=== PATIENT | female | born 2000 | race Caucasian/White ===

== ENCOUNTER 2018-04-01 14:18 | Outpatient (CLI) | payer OTHER, SELFPAY ==
[2018-04-01 14:54] LABS: Abs Immature Grans 0.01 k/cumm (0.0-0.09); Absolute Basophil Count 0.02 k/cumm (0.0-0.2); Absolute Eosinophil Count 0.31 k/cumm (0.0-0.7); Absolute Lymphocyte Count 2.68 k/cumm (1.2-3.4); Absolute Monocyte Count 0.57 k/cumm (0.11-0.7); Absolute Neutrophil Count 2.79 k/cumm (1.2-6.7); Basophils % 0.3; Eosinophils % 4.9; HCT 34.4 % (36.0-46.0); HGB 11.6 g/dL (12.0-15.5); Immature Grans % 0.2; Mean Corp. HGB Concentration 33.7 g/dL (32.0-36.0); Mean Corpuscular Hemoglobin 31.9 pg (27.0-33.0); Mean Corpuscular Volume 94.5 fL (80-95); Mean Platelet Volume 11.5 fL (8.0-11.0); Monocytes % 8.9; Neutrophils % 43.7; Platelet Count 256 x1000/uL (130-400); RBC 3.64 m/cumm (4.00-5.20); White Blood Cell Count 6.38 k/cumm (4.4-10.8)
== END 2018-04-01 14:38 ==
PROVIDERS: PCP Internal Medicine; Visit Provider Internal Medicine Rheumatology
DX: M19.90 Unspecified osteoarthritis, unspecified site (principal); Q79.6 Ehlers-Danlos syndromes
CPT/HCPCS: 36415; 85025

== ENCOUNTER 2018-04-15 12:44 | Outpatient (CLI) | payer OTHER, SELFPAY ==
[2018-04-15 14:19] LABS: ALT 24 U/L (12-78); AST 18 U/L (15-37); Albumin 3.6 g/dL (3.4-5.0); Alkaline Phosphatase 59 U/L (46-116); Anion Gap 9.6 mmol/L (3-11); BUN 11 mg/dL (7-18); Bilirubin, Total 0.9 mg/dL (0.2-1.0); CO2 25.4 mmol/L (21.0-32.0); CREATININE 0.85 mg/dL (0.55-1.02); Calcium 8.6 mg/dL (8.5-10.1); Chloride 105 mmol/L (98-107); Glucose 106 mg/dL (70-100); Potassium 4.3 mmol/L (3.5-5.1); Sodium 140 mmol/L (136-145); Total Protein 6.9 g/dL (6.4-8.2)
== END 2018-04-15 13:04 ==
PROVIDERS: PCP Internal Medicine; Visit Provider Internal Medicine Rheumatology
DX: M19.90 Unspecified osteoarthritis, unspecified site (principal); Q79.6 Ehlers-Danlos syndromes
CPT/HCPCS: 36415; 80053

== ENCOUNTER 2018-07-03 09:36 | Outpatient (CLI) | payer OTHER, SELFPAY ==
[2018-07-03 11:15] LABS: ALT 29 U/L (12-78); AST 21 U/L (15-37); Albumin 3.9 g/dL (3.4-5.0); Alkaline Phosphatase 51 U/L (46-116); Anion Gap 11.6 mmol/L (3-11); BUN 11 mg/dL (7-18); Bilirubin, Total 0.8 mg/dL (0.2-1.0); CO2 25.4 mmol/L (21.0-32.0); CREATININE 0.74 mg/dL (0.55-1.02); Calcium 9.2 mg/dL (8.5-10.1); Chloride 103 mmol/L (98-107); Glucose 82 mg/dL (70-100); Potassium 4.2 mmol/L (3.5-5.1); Sodium 140 mmol/L (136-145); Total Protein 7.4 g/dL (6.4-8.2)
[2018-07-03 11:30] LABS: Abs Immature Grans 0.01 k/cumm (0.0-0.09); Absolute Basophil Count 0.01 k/cumm (0.0-0.2); Absolute Eosinophil Count 0.29 k/cumm (0.0-0.7); Absolute Lymphocyte Count 1.88 k/cumm (1.2-3.4); Absolute Monocyte Count 0.39 k/cumm (0.11-0.7); Basophils % 0.1; Eosinophils % 3.2; HCT 35.9 % (36.0-46.0); HGB 12.2 g/dL (12.0-15.5); Immature Grans % 0.1; Lymphocytes % 20.9; Mean Corpuscular Hemoglobin 32.4 pg (27.0-33.0); Mean Corpuscular Volume 95.5 fL (80-95); Mean Platelet Volume 11.7 fL (8.0-11.0); Monocytes % 4.3; Neutrophils % 71.4; Platelet Count 271 x1000/uL (130-400); RBC 3.76 m/cumm (4.00-5.20); RBC Distribution Width 12.9 % (11.7-14.6); White Blood Cell Count 8.98 k/cumm (4.4-10.8)
== END 2018-07-03 09:56 ==
PROVIDERS: PCP Internal Medicine; Visit Provider Internal Medicine Rheumatology
DX: M47.819 Spondylosis without myelopathy or radiculopathy, site unspecified (principal); Z79.899 Other long term (current) drug therapy
CPT/HCPCS: 36415; 80053; 85025

== ENCOUNTER 2018-08-28 14:06 | Outpatient (CLI) | payer BC, SELFPAY ==
[2018-08-28 14:20] LABS: Abs Immature Grans 0.01 k/cumm (0.0-0.09); Absolute Basophil Count 0.01 k/cumm (0.0-0.2); Absolute Eosinophil Count 0.14 k/cumm (0.0-0.7); Absolute Lymphocyte Count 2.24 k/cumm (1.2-3.4); Absolute Monocyte Count 0.51 k/cumm (0.11-0.7); Absolute Neutrophil Count 5.14 k/cumm (1.2-6.7); Basophils % 0.1; Eosinophils % 1.7; HCT 34.5 % (36.0-46.0); HGB 11.6 g/dL (12.0-15.5); Immature Grans % 0.1; Lymphocytes % 27.8; Mean Corp. HGB Concentration 33.6 g/dL (32.0-36.0); Mean Corpuscular Hemoglobin 32.1 pg (27.0-33.0); Mean Corpuscular Volume 95.6 fL (80-95); Mean Platelet Volume 11.1 fL (8.0-11.0); Monocytes % 6.3; Platelet Count 243 x1000/uL (130-400); RBC 3.61 m/cumm (4.00-5.20); RBC Distribution Width 12.5 % (11.7-14.6); White Blood Cell Count 8.05 k/cumm (4.4-10.8)
[2018-08-28 15:24] LABS: ALT 34 U/L (12-78); AST 19 U/L (15-37); Albumin 3.5 g/dL (3.4-5.0); Alkaline Phosphatase 44 U/L (46-116); Anion Gap 9.6 mmol/L (3-11); BUN 12 mg/dL (7-18); Bilirubin, Total 0.8 mg/dL (0.2-1.0); CO2 26.4 mmol/L (21.0-32.0); Calcium 8.9 mg/dL (8.5-10.1); Chloride 104 mmol/L (98-107); Glucose 140 mg/dL (70-100); Potassium 4.5 mmol/L (3.5-5.1); Sodium 140 mmol/L (136-145); Total Protein 7.1 g/dL (6.4-8.2)
== END 2018-08-28 14:26 ==
PROVIDERS: PCP Internal Medicine; Visit Provider Internal Medicine Rheumatology
DX: M47.819 Spondylosis without myelopathy or radiculopathy, site unspecified (principal); Z79.899 Other long term (current) drug therapy
CPT/HCPCS: 36415; 80053; 85025

== ENCOUNTER 2019-01-21 15:37 | Outpatient (CLI) | payer BC, SELFPAY ==
[2019-01-21 16:11] LABS: Abs Immature Grans 0.01 k/cumm (0.0-0.09); Absolute Basophil Count 0.02 k/cumm (0.0-0.2); Absolute Eosinophil Count 0.07 k/cumm (0.0-0.7); Absolute Lymphocyte Count 1.98 k/cumm (1.2-3.4); Absolute Monocyte Count 0.43 k/cumm (0.11-0.7); Basophils % 0.3; HCT 37.1 % (36.0-46.0); HGB 12.6 g/dL (12.0-15.5); Immature Grans % 0.1; Lymphocytes % 29.5; Mean Corpuscular Hemoglobin 31.9 pg (27.0-33.0); Mean Corpuscular Volume 93.9 fL (80-95); Mean Platelet Volume 11.2 fL (8.0-11.0); Monocytes % 6.4; Neutrophils % 62.7; Platelet Count 226 x1000/uL (130-400); RBC 3.95 m/cumm (4.00-5.20); White Blood Cell Count 6.71 k/cumm (4.4-10.8)
[2019-01-21 17:07] LABS: ALT 27 U/L (12-78); AST 18 U/L (15-37); Alkaline Phosphatase 60 U/L (46-116); Anion Gap 8.5 mmol/L (3-11); BUN 10 mg/dL (7-18); Bilirubin, Total 0.8 mg/dL (0.2-1.0); CO2 24.5 mmol/L (21.0-32.0); CREATININE 0.78 mg/dL (0.55-1.02); Calcium 9.2 mg/dL (8.5-10.1); Chloride 106 mmol/L (98-107); Glucose 90 mg/dL (70-100); Potassium 4.4 mmol/L (3.5-5.1); Sodium 139 mmol/L (136-145); Total Protein 7.6 g/dL (6.4-8.2)
== END 2019-01-21 15:57 ==
PROVIDERS: PCP Internal Medicine; Visit Provider Internal Medicine Rheumatology
DX: M47.819 Spondylosis without myelopathy or radiculopathy, site unspecified (principal); Z79.899 Other long term (current) drug therapy
CPT/HCPCS: 36415; 80053; 85025

== ENCOUNTER 2019-06-22 14:07 | Outpatient (CLI) | payer BC, SELFPAY ==
[2019-06-22 14:32] LABS: Abs Immature Grans 0.01 k/cumm (0.0-0.09); Absolute Basophil Count 0.03 k/cumm (0.0-0.2); Absolute Lymphocyte Count 2.61 k/cumm (1.2-3.4); Absolute Neutrophil Count 4.96 k/cumm (1.2-6.7); Basophils % 0.4; Eosinophils % 2.4; HGB 12.1 g/dL (12.0-15.5); Immature Grans % 0.1; Lymphocytes % 31.4; Mean Corp. HGB Concentration 34.6 g/dL (32.0-36.0); Mean Corpuscular Hemoglobin 32.4 pg (27.0-33.0); Mean Corpuscular Volume 93.6 fL (80-95); Mean Platelet Volume 10.9 fL (8.0-11.0); Neutrophils % 59.7; Platelet Count 223 x1000/uL (130-400); RBC 3.74 m/cumm (4.00-5.20); White Blood Cell Count 8.31 k/cumm (4.4-10.8)
[2019-06-22 15:23] LABS: ALT 24 U/L (14-59); AST 18 U/L (15-37); Albumin 3.8 g/dL (3.4-5.0); Alkaline Phosphatase 47 U/L (46-116); Anion Gap 10.6 mmol/L (3-11); BUN 10 mg/dL (7-18); Bilirubin, Total 0.7 mg/dL (0.2-1.0); CO2 25.4 mmol/L (21.0-32.0); Chloride 105 mmol/L (98-107); Glucose 88 mg/dL (74-106); Sodium 141 mmol/L (136-145)
[2019-06-22 15:29] LABS: CREATININE 0.66 mg/dL (0.55-1.02)
[2019-06-22 15:37] LABS: TSH (W/Ref FT4) 1.56 uIU/mL (0.36-3.74)
== END 2019-06-22 14:27 ==
PROVIDERS: PCP Internal Medicine; Visit Provider Internal Medicine Rheumatology
DX: Z00.00 Encounter for general adult medical examination without abnormal findings (principal); Z13.29 Encounter for screening for other suspected endocrine disorder; M47.819 Spondylosis without myelopathy or radiculopathy, site unspecified; Z79.899 Other long term (current) drug therapy
CPT/HCPCS: 36415; 80053; 84443; 85025

== ENCOUNTER 2020-01-25 02:09 | Outpatient (CLI) | payer BC, SELFPAY ==
[2020-01-25 13:52] LABS: Abs Immature Grans 0.01 k/cumm (0.0-0.09); Absolute Basophil Count 0.03 k/cumm (0.0-0.2); Absolute Eosinophil Count 0.28 k/cumm (0.0-0.7); Absolute Lymphocyte Count 2.47 k/cumm (1.2-3.4); Absolute Monocyte Count 0.66 k/cumm (0.11-0.7); Absolute Neutrophil Count 2.04 k/cumm (1.2-6.7); Basophils % 0.5; Eosinophils % 5.1; HCT 36.3 % (36.0-46.0); HGB 12.4 g/dL (12.0-15.5); Immature Grans % 0.2 %; Mean Corp. HGB Concentration 34.2 g/dL (32.0-36.0); Mean Corpuscular Hemoglobin 32.3 pg (27.0-33.0); Mean Corpuscular Volume 94.5 fL (80-95); Mean Platelet Volume 11.5 fL (8.0-11.0); Neutrophils % 37.2; Platelet Count 207 x1000/uL (130-400); RBC 3.84 m/cumm (4.00-5.20); White Blood Cell Count 5.49 k/cumm (4.4-10.8)
[2020-01-25 14:24] LABS: ALT 29 U/L (14-59); AST 28 U/L (15-37); Albumin 4.2 g/dL (3.4-5.0); Alkaline Phosphatase 62 U/L (46-116); Anion Gap 10.3 mmol/L (3-11); BUN 13 mg/dL (7-18); Bilirubin, Total 0.8 mg/dL (0.2-1.0); CO2 24.7 mmol/L (21.0-32.0); CREATININE 0.82 mg/dL (0.55-1.02); Calcium 9.3 mg/dL (8.5-10.1); Chloride 102 mmol/L (98-107); Glucose 123 mg/dL (74-106); Potassium 3.9 mmol/L (3.5-5.1); Sodium 137 mmol/L (136-145); Total Protein 7.3 g/dL (6.4-8.2)
== END 2020-01-25 02:29 ==
PROVIDERS: PCP Internal Medicine; Visit Provider Internal Medicine Rheumatology
DX: M06.00 Rheumatoid arthritis without rheumatoid factor, unspecified site (principal); Z79.899 Other long term (current) drug therapy
CPT/HCPCS: 36415; 80053; 85025

== ENCOUNTER 2021-09-04 00:44 | Outpatient (RCR) | payer BC, SELFPAY ==
[2021-09-04] VITALS (7 sets, daily range): BP systolic 105–115; BP diastolic 64–75; PULSE 84–102; RESP 16–17; TEMP 36.1–36.6; O2SAT 99–100
[2021-09-04] MEDS: diphenhydrAMINE 25 MG CAP PO (08:05)
[2021-09-04] MEDS: Acetaminophen 325 MG TAB 650 MG PO (08:05)
[2021-09-04] MEDS: Normal Saline Flush 10 ML SYR IVP (08:34)
== END 2021-09-18 23:59 | disposition home or self-care (01) ==
LOC: INF 00:44
PROVIDERS: PCP Internal Medicine; Visit Provider Family Medicine
DX: M06.9 Rheumatoid arthritis, unspecified (principal); L40.9 Psoriasis, unspecified
CPT/HCPCS: 96365; 96366; 96413; 96415; J1745

== ENCOUNTER 2021-10-16 02:25 | Outpatient (RCR) | payer BC, SELFPAY ==
[2021-09-19 00:15] VITALS: BP 115/75; PULSE 84; RESP 17; TEMP 36.6
[2021-10-16] MEDS: Acetaminophen 325 MG TAB 650 MG PO (08:14)
[2021-10-16] MEDS: diphenhydrAMINE 25 MG CAP PO (08:14)
[2021-10-16] MEDS: Normal Saline Flush 10 ML SYR IVP (08:15)
[2021-10-16 08:30] VITALS: BP 102/70; PULSE 98; RESP 16; TEMP 36.7; O2SAT 99
[2021-10-16 08:59] VITALS: BP 104/71; PULSE 98; RESP 16; TEMP 36.6; O2SAT 100
[2021-10-16 09:12] VITALS: BP 98/57; PULSE 93; RESP 16; TEMP 36.7; O2SAT 100
[2021-10-16 09:27] VITALS: BP 113/70; PULSE 79; RESP 16; TEMP 36.5; O2SAT 100
[2021-10-16 09:45] VITALS: BP 99/66; PULSE 85; RESP 16; TEMP 36.7; O2SAT 100
[2021-10-16 10:15] VITALS: BP 110/68; PULSE 93; RESP 16; TEMP 36.7; O2SAT 99
== END 2021-10-19 23:59 | disposition home or self-care (01) ==
LOC: INF 02:25
PROVIDERS: PCP Internal Medicine; Visit Provider Family Medicine
DX: M06.9 Rheumatoid arthritis, unspecified (principal); L40.9 Psoriasis, unspecified
CPT/HCPCS: 96365; 96366; 96413; 96415; J1745

== ENCOUNTER 2021-11-27 00:55 | Outpatient (RCR) | payer BC, SELFPAY ==
[2021-10-20 00:06] VITALS: BP 110/68; PULSE 93; RESP 16; TEMP 36.7
[2021-11-27] MEDS: Normal Saline Flush 10 ML SYR IVP (08:15)
[2021-11-27 08:50] VITALS: BP 106/69; PULSE 85; RESP 17; TEMP 36.1; O2SAT 98
[2021-11-27 09:15] VITALS: BP 103/68; PULSE 75; RESP 16; TEMP 36.7; O2SAT 98
[2021-11-27 09:30] VITALS: BP 109/67; PULSE 84; RESP 16; TEMP 36.7; O2SAT 98
[2021-11-27 09:45] VITALS: BP 105/70; PULSE 73; RESP 16; TEMP 36.6; O2SAT 100
[2021-11-27 10:15] VITALS: BP 109/70; PULSE 78; RESP 16; TEMP 36.7; O2SAT 98
[2021-11-27 10:45] VITALS: BP 110/69; PULSE 79; RESP 16; TEMP 36.6; O2SAT 100
== END 2021-12-19 23:59 | disposition home or self-care (01) ==
LOC: INF 00:55
PROVIDERS: PCP Nurse Practitioner; Visit Provider Family Medicine
DX: M06.9 Rheumatoid arthritis, unspecified (principal); L40.9 Psoriasis, unspecified
CPT/HCPCS: 96365; 96366; 96413; 96415; J1745

== ENCOUNTER 2021-11-28 16:06 | Outpatient (REF) | payer BC, SELFPAY ==
--- NOTE | 2021-11-28 15:40 | PAPFT_PTH ---
PATIENT: Kristen Aguiar LOC: [facility] U#:[id number] AGE/SX: 21/F ROOM: RE11/28/[address]: Tierra Mcgee APRN : 2000 BED: DIS: 11/28/2021 SPEC #: [id number] RECD: 11/28/21 18:32 STATUS: AYLIN REDimple #: [id number] JARETH: 11/28/21 15:[address]: Tierra Mcgee DEPT: [facility] Cytology RECD BY: Tanya Lopez Tissues: 1 - CX/ENDOCX FOR PAP SMEARS Procedures: PAP THIN PREP/UVM Screening Comments: [id number]
== END 2021-11-28 16:07 | disposition home or self-care (01) ==
LOC: LBN 16:06
PROVIDERS: PCP Nurse Practitioner; Visit Provider Nurse Practitioner
DX: Z11.51 Encounter for screening for human papillomavirus (HPV) (principal); Z12.4 Encounter for screening for malignant neoplasm of cervix
CPT/HCPCS: 88142

== ENCOUNTER 2022-01-08 02:15 | Outpatient (RCR) | payer BC, SELFPAY ==
[2021-12-20 00:10] VITALS: BP 110/69; PULSE 79; RESP 16; TEMP 36.6
[2022-01-08] VITALS (7 sets, daily range): BP systolic 100–117; BP diastolic 66–75; PULSE 81–111; RESP 16–18; TEMP 36.3–36.7; O2SAT 97–99
[2022-01-08] MEDS: diphenhydrAMINE 25 MG CAP PO (07:54)
[2022-01-08] MEDS: Acetaminophen 325 MG TAB 650 MG PO (07:55)
[2022-01-08] MEDS: Normal Saline Flush 10 ML SYR IVP (07:55)
== END 2022-01-18 23:59 | disposition home or self-care (01) ==
LOC: INF 02:15
PROVIDERS: PCP Nurse Practitioner; Visit Provider Family Medicine
DX: M06.9 Rheumatoid arthritis, unspecified (principal); L40.9 Psoriasis, unspecified
CPT/HCPCS: 96365; 96366; 96413; 96415; J1745

== ENCOUNTER 2022-03-01 01:20 | Outpatient (RCR) | payer OTHER, BC, SELFPAY ==
[2022-01-19 00:06] VITALS: BP 114/71; PULSE 89; RESP 16; TEMP 36.3
[2022-03-01] MEDS: Acetaminophen 325 MG TAB (12:43)
[2022-03-01] MEDS: diphenhydrAMINE 25 MG CAP (12:44)
[2022-03-01] MEDS: Normal Saline Flush 10 ML SYR IVP ×2 (12:45→13:11)
[2022-03-01 13:00] VITALS: BP 111/73; PULSE 86; RESP 20; TEMP 36.5; O2SAT 100
[2022-03-01 13:15] VITALS: BP 106/69; PULSE 96; RESP 16; TEMP 36.2; O2SAT 100
[2022-03-01 13:37] VITALS: BP 104/69; PULSE 84; RESP 18; TEMP 36.5; O2SAT 100
[2022-03-01 13:51] VITALS: BP 110/72; PULSE 84; RESP 18; TEMP 36.5; O2SAT 100
[2022-03-01 14:22] VITALS: BP 117/75; PULSE 72; RESP 20; TEMP 36.5; O2SAT 100
[2022-03-01 14:53] VITALS: BP 102/67; PULSE 81; RESP 20; TEMP 36.4; O2SAT 100
== END 2022-03-21 23:59 | disposition home or self-care (01) ==
LOC: INF 01:20
PROVIDERS: PCP Nurse Practitioner; Visit Provider Family Medicine
DX: L40.52 Psoriatic arthritis mutilans (principal)
CPT/HCPCS: 96365; 96366; 96413; 96415; J1745

== ENCOUNTER 2022-04-06 01:13 | Outpatient (RCR) | payer OTHER, SELFPAY ==
[2022-03-22 00:12] VITALS: BP 102/67; PULSE 81; RESP 20; TEMP 36.4
[2022-04-06] VITALS (7 sets, daily range): BP systolic 104–116; BP diastolic 62–77; PULSE 82–101; RESP 16–17; TEMP 36.6–36.8; O2SAT 97–100
[2022-04-06] MEDS: Normal Saline Flush 10 ML SYR IVP (11:58)
[2022-04-06] MEDS: diphenhydrAMINE 25 MG CAP PO (11:58)
[2022-04-06] MEDS: Acetaminophen 325 MG TAB 650 MG PO (11:58)
== END 2022-04-20 23:59 | disposition home or self-care (01) ==
LOC: INF 01:13
PROVIDERS: PCP Nurse Practitioner; Visit Provider Family Medicine
DX: L40.52 Psoriatic arthritis mutilans (principal)
CPT/HCPCS: 96365; 96366; 96413; 96415; J1745

== ENCOUNTER 2022-05-04 01:51 | Outpatient (CLI) | payer OTHER, BC, SELFPAY ==
[2022-05-04 12:16] LABS: ESR 8 mm/hr (0-20)
[2022-05-04 12:18] LABS: Abs Immature Grans 0.03 10^3/uL (0.0-0.06); Absolute Basophil Count 0.04 10^3/uL (0.0-0.2); Absolute Eosinophil Count 0.23 10^3/uL (0.0-0.7); Absolute Lymphocyte Count 2.27 10^3/uL (1.2-3.4); Absolute Monocyte Count 0.45 10^3/uL (0.1-0.8); Absolute Neutrophil Count 4.96 10^3/uL (1.2-6.7); Basophils % 0.5; Eosinophils % 2.9; HCT 35.3 % (36.0-46.0); Immature Grans % 0.4; Lymphocytes % 28.4; MCV 91 fL (80-95); MPV 11.2 fL (8.0-11.0); Monocytes % 5.6; Neutrophils % 62.2; Platelet Count 263 10^3/uL (130-400); RBC 3.87 10^6/uL (3.93-5.22); RDW 12.1 % (11.7-14.6); RDW-SD 40.1 fL; WBC 7.98 10^3/uL (4.4-10.8)
[2022-05-04 12:45] LABS: ALT 20 U/L (14-59); AST 18 U/L (15-37); Alkaline Phosphatase 56 U/L (46-116); Bilirubin, Direct 0.1 mg/dL (0.0-0.2); Bilirubin, Total 0.6 mg/dL (0.2-1.0); CREATININE 0.9 mg/dL (0.55-1.02); Estimated GFR 92.12 (mL/min/1.73m2); Total Protein 8.2 g/dL (6.4-8.2)
[2022-05-04 12:49] LABS: C-Reactive Protein < 0.05 mg/dL (0.0-0.3)
== END 2022-05-04 01:52 | disposition home or self-care (01) ==
PROVIDERS: PCP Nurse Practitioner; Visit Provider Internal Medicine
DX: R21 Rash and other nonspecific skin eruption (principal); R79.89 Other specified abnormal findings of blood chemistry; Z51.81 Encounter for therapeutic drug level monitoring; Z79.899 Other long term (current) drug therapy
CPT/HCPCS: 36415; 80076; 85652; 82565; 85025; 86140

== ENCOUNTER 2024-10-26 03:35 | Outpatient (CLI) | payer BC, SELFPAY ==
[2024-10-26 16:50] LABS: Panorama Kit Sent via Fed Ex
[2024-10-26 16:57] LABS: Abs Immature Grans 0.04 10^3/uL (0.0-0.06); Absolute Basophil Count 0.04 10^3/uL (0.0-0.2); Absolute Eosinophil Count 0.64 10^3/uL (0.0-0.7); Absolute Lymphocyte Count 2.42 10^3/uL (1.2-3.4); Absolute Monocyte Count 0.78 10^3/uL (0.1-0.8); Absolute Neutrophil Count 6.35 10^3/uL (1.2-6.7); Basophils % 0.4 %; Eosinophils % 6.2 %; HGB 11.8 g/dL (11.2-15.7); Immature Grans % 0.4 %; Lymphocytes % 23.6 %; MCHC 33.7 % (32.0-36.0); MCV 95 fL (80-95); MPV 10.4 fL (8.0-11.0); Monocytes % 7.6 %; Neutrophils % 61.8 %; Platelet Count 243 10^3/uL (130-400); RBC 3.69 10^6/uL (3.93-5.22); RDW 12.9 % (11.7-14.6); RDW-SD 44.5 fL; WBC 10.27 10^3/uL (4.4-10.8)
[2024-10-28 10:01] LABS: Hepatitis B Surface Ag Negative (Negative)
[2024-10-28 11:09] LABS: Rubella IgG Ab (UVM) Positive (See Note); Varicella IgG Antibody Positive (See Note)
[2024-10-28 13:20] LABS: HIV-1/2 Ag & Ab Screen Negative (Negative)
[2024-10-28 13:26] LABS: Hepatitis C Ab w Rflx HCV PCR Negative (Negative)
[2024-10-29 19:11] LABS: Syphilis IgG w/Reflex Nonreactive (Nonreactive)
[2024-11-03 15:44] LABS: Specimen WB Whole Blood
[2024-11-13 17:01] LABS: Result Summary NEGATIVE; Specimen WB Whole Blood
== END 2024-10-26 03:36 | disposition home or self-care (01) ==
LOC: LBO 03:35
PROVIDERS: PCP Nurse Practitioner; Visit Provider Advanced Practice Midwife
DX: Z34.91 Encounter for supervision of normal pregnancy, unspecified, first trimester (principal)
CPT/HCPCS: 36415; 81220; 81222; 81329; 86787; 86803; 86850; 86900; 86901; 87340; 87389; 85025; 86762; 86780

== ENCOUNTER 2024-10-26 16:44 | Outpatient (REF) | payer BC, SELFPAY ==
[2024-10-26 17:01] LABS: Lab Add On Test DONE
[2024-10-26 17:36] LABS: *AMPHETAMINES SCREEN URINE Negative (Negative); *BARBITURATES SCREEN URINE Negative (Negative); *BENZODIAZEPINES SCREEN URINE Negative (Negative); Cannabinoids THC Negative (Negative); Cocaine Screen,Urine Negative (Negative); METHADONE URINE SCREEN Negative (Negative); OPIATES URINE SCREEN Negative (Negative)
[2024-10-26 17:39] LABS: Tricyclic Antidepressants Negative (Negative)
[2024-10-28 11:51] LABS: Fentanyl Scr w/Rfx Confirm Negative ng/mL (<1)
[2024-10-28 11:54] LABS: Chlamydia Result Negative (Negative); GC Result Negative (Negative)
[2024-11-04 12:26] LABS: Buprenorphine Negative ng/mL (Cutoff: 5.0); Norbuprenorphine Negative ng/mL (Cutoff: 2.5)
== END 2024-10-26 16:45 | disposition home or self-care (01) ==
LOC: LBN 16:44
PROVIDERS: PCP Nurse Practitioner; Visit Provider Advanced Practice Midwife
DX: Z34.91 Encounter for supervision of normal pregnancy, unspecified, first trimester (principal)
CPT/HCPCS: 80307; 80348; 87491; 87591; 87086

== ENCOUNTER 2025-02-12 00:56 | Outpatient (CLI) | payer BC, SELFPAY ==
[2025-02-12 08:34] LABS: HCT 33.2 % (36.0-46.0); HGB 11.2 g/dL (11.2-15.7); MCH 32.2 pg (27.0-33.0); MCHC 33.7 % (32.0-36.0); MCV 95 fL (80-95); MPV 10.7 fL (8.0-11.0); Platelet Count 209 10^3/uL (130-400); RBC 3.48 10^6/uL (3.93-5.22); RDW 13.2 % (11.7-14.6); RDW-SD 45.5 fL; WBC 12.85 10^3/uL (4.4-10.8)
[2025-02-12 09:07] LABS: Glucose,1 Hr (Glucola) 121 mg/dL (80-140)
== END 2025-02-12 00:57 | disposition home or self-care (01) ==
LOC: LBO 00:56
PROVIDERS: PCP Nurse Practitioner; Visit Provider Advanced Practice Midwife
DX: O26.892 Other specified pregnancy related conditions, second trimester (principal); Z67.91 Unspecified blood type, Rh negative; Z34.92 Encounter for supervision of normal pregnancy, unspecified, second trimester
CPT/HCPCS: 36415; 82950; 85027; 86850; 90384

== ENCOUNTER 2025-02-12 09:40 | Outpatient (REF) | payer BC, SELFPAY ==
[2025-02-12 11:04] LABS: Cannabinoids THC Negative (Negative); METHADONE URINE SCREEN Negative (Negative)
[2025-02-15 10:32] LABS: Fentanyl Scr w/Rfx Confirm Negative ng/mL (<1)
== END 2025-02-12 09:41 | disposition home or self-care (01) ==
LOC: LBN 09:40
PROVIDERS: PCP Nurse Practitioner; Visit Provider Advanced Practice Midwife
DX: Z34.92 Encounter for supervision of normal pregnancy, unspecified, second trimester (principal)
CPT/HCPCS: 80307; 80348

== ENCOUNTER 2025-03-12 01:07 | Outpatient (CLI) | payer BC, SELFPAY ==
--- NOTE | 2025-03-12 06:30 | DI.US_ITS ---
Exam(s) US OB MARLENA WEIGHT EXAM: US OB MARLENA WEIGHT CLINICAL HISTORY: medication exposure M06.09 RHEUMATOID ARTHRITIS, RIVKA DANLOS DISEASE. TECHNIQUE: Transabdominal obstetrical ultrasound performed. COMPARISON: US POCUS EXAM from 09/30/2024 FINDINGS:: Number of fetuses: 1 position: Cephalic Placental location: Posterior. No evidence of previa. BIOMETRIC DATA: BPD: 79 mm, 31+4 weeks HC: 300 mm, 33+2 weeks AC: 276 mm, 31+5 weeks FL: 59 mm, 30+ 5 weeks EFW: 1793, 30th percentile, Composite Age: 31+ 6 weeks GUERLINE: 08 May 2025 Heart Rate: 133 Amniotic fluid index: 11.0. Visually, amount of fluid is within normal limits. IMPRESSION: size and weight are within the expected range. DATA REPOSITORY:
== END 2025-03-12 01:27 ==
PROVIDERS: PCP Nurse Practitioner; Visit Provider Advanced Practice Midwife
DX: M06.09 Rheumatoid arthritis without rheumatoid factor, multiple sites (principal); Z3A.33 33 weeks gestation of pregnancy; O99.891 Other specified diseases and conditions complicating pregnancy
CPT/HCPCS: 76816

== ENCOUNTER 2025-03-12 17:08 | Observation (INO) | payer BC, SELFPAY ==
[2025-03-12] VITALS (18 sets, daily range): BP systolic 139–168; BP diastolic 86–100; PULSE 71–127; RESP 16; TEMP 36.6–36.9; O2SAT 97
[2025-03-12 17:02] LABS: HCT 32.0 % (36.0-46.0); HGB 11.0 g/dL (11.2-15.7); MCH 32.4 pg (27.0-33.0); MCHC 34.4 % (32.0-36.0); MCV 94 fL (80-95); MPV 12.1 fL (8.0-11.0); Platelet Count 182 10^3/uL (130-400); RBC 3.39 10^6/uL (3.93-5.22); RDW 13.0 % (11.7-14.6); RDW-SD 44.8 fL; WBC 12.95 10^3/uL (4.4-10.8)
[2025-03-12 17:12] LABS: PROTEIN 27.4 mg/dL; Prot/Crea Ur Ratio 1.24
--- NOTE | 2025-03-12 17:13 | HPE_ITS ---
Date of service: 03/12/25 Time of Service: 18:13 Assessment and Plan Assessment and plan (1) : Status: Acute Assessment and plan: 24-year-old G1, P0 at 31 weeks and 6 days as dated by LMP equal to 36 weeks is dated by LMP equal to an 8-week ultrasound (GUERLINE 05/08/2025) ? Rh-/rubella immune/VZV immune/GBS pending ? complicated by type III Edwin-Danlos, psoriatic arthritis, and now suspected preeclampsia ? Administering betamethasone (first dose received around 6 PM on 03/12/2025) ? GBS pending as of 03/12/2025 ? Discussed triage process with patient. We discussed the potential need for transfer to [facility] in the event that she has multiple episodes of severe range blood pressures. For now, we will continue to monitor here so long as her clinical status remains stable and her blood pressures remain out of severe range. (2) Elevated blood pressure affecting in third trimester, antepartum: Status: Acute Assessment and plan: ? Highly suspicious for preeclampsia given the elevated blood pressures in the setting of an elevated protein creatinine ratio (1.24) ? Determination of whether or not this is with or without severe features will be based on prolonged observation. So far, labs are without evidence of severe features, and the patient denies any symptoms of preeclampsia. We did treat her initial blood pressures which were in the low 160s over 90s with 1 dose of immediate release 10 mg Procardia. If her blood pressures become a recurrent problem, we will consider transfer to a tertiary center. So far, her blood pressures have responded well to a one-time treatment. ? 24-hour urine protein collection started ? Initiating betamethasone and GBS swab collected ? Magnesium therapy given the initially severe range blood pressures; discussed that magnesium therapy will be continued throughout the evening ? status stable and reassuring (3) Rh negative status during : Status: Acute Assessment and plan: ? Antibody screening initially negative ? Patient has received RhoGAM at the 28-week namrata ? Denies any current vaginal bleeding (4) Rheumatoid arthritis: Status: Chronic Assessment and plan: ? Well-controlled on Certolizumab; patient reports next dose is due this weekend (injection performed every 2 weeks). Ordered to be continued for this weekend. (5) EDS (Edwin-Danlos syndrome): Status: Acute Assessment and plan: ? Type III; hypermobile ? Patient reports formal diagnosis via genetic testing ? Patient denies any history of cardiovascular involvement (6) Oral allergy syndrome: Status: Acute OB-HPI Labor/Delivery History of Present Illness Reason for Visit: NST Chief Complaint: Other (Blood pressure issues in ). GUERLINE Calculator Estimated Delivery Date Method Current WG Current Estimate 05/08/25 LMP (Certain) 31w 6d Other Estimates 05/10/25 Ultrasound #1 31w 4d Comments: 4-year-old G1, P0 at 31 weeks and 6 days is dated by LMP equal to 8-week ultrasound (GUERLINE 05/08/2025) presents to labor and delivery for a workup of concerning the elevated blood pressures. Patient denies any signs or symptoms of preeclampsia. She denies any history of chronic hypertension or having ever had concerns for elevated blood pressures; she does report a history of chronic hypertension that runs in her family. She denies any use of illicit substances, and her urine drug screen is noted to be negative. is further complicated by history of hypermobile type Edwin-Danlos (she has had a normal cardiac echo in this and denies any history of vascular or cardiac involvement), history of psoriatic arthritis, history of heart murmur. She reports good movement and she denies vaginal bleeding or leakage. Of note, a formal ultrasound collected earlier in the day identified an estimated weight within the 30th percentile with an MARLENA of 11. History of Present Expected Delivery Route/Plan - CNM FOB/ - Corona Perales RT (first child) BB yes to circ Planning for epidural in active labor Specific Issues/Plan 1. Hypermobile EDS, seen by Dr Richard at [facility] at 5 wks (see scanned notes), plan level 2 ultrasound - limited view of heart, returning in 2 weeks to complete anatomy scan- normal exam. 2. Hx heart Murmur-Echo WNL in the past. Referred to primary care for evaluation 3. Rh neg, 28 wk RhoGam 02/12/25 4. cfDNA Low-Risk/Male, SMA/CF negative, undecided re: AFP 5. migraine - discontinued imitrex, Takes magnesium daily. 6. Rheumatoid arthritis, diagnosis later changed to psoriatic - Rx: Cimzia. Discontinued Rinvoq before . 6a. 32 wk interval growth 03/12: 30th percentile and MARLENA 11. 7. 5-Ps pos for family substance use. Urine drug screen=negative, 28 wk UDS=negative 8. Fam hx HTN and pt seems to have stage 1 HTN prior to 20 wks, no meds. Pt checking BP at home. 8a. At 32 wks, diastolic of 102, eval in L&D:___ Review of Systems All systems reviewed & are unremarkable except as noted in HPI and below PFSH All Active Problems (Updated 03/12/25 @ 18:30 by Makenzie Hyatt DO) Psoriatic arthritis (Acute) Elevated blood pressure affecting in third trimester, antepartum (Acute) Stage 1 hypertension (Acute) Murmur, cardiac (Acute 03/17/15) Rh negative status during (Acute) (Acute) Rheumatoid arthritis (Chronic) Followed at [facility]. 08/2024. Meds adjusted pre-. Certolizumab is compatible with all 3 trimesters of Oral allergy syndrome (Acute 06/03/12) strawberry and kiwi Hypermobile joints (Acute 12/28/14) referall to genetics by dr. garcia- ? cici 01/03 Low back pain (Acute) Psoriasis (Chronic) EDS (Edwin-Danlos syndrome) (Acute) Type 3. Hypermobile joints. No issues with heart or blood vessels. 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 Myopia (06/03/12) Menorrhagia with irregular cycle (06/22/14) Infectious mononucleosis (08/31/14) Elevated sed rate (03/17/15) Arthralgia (03/17/15) Allergic rhinitis (09/14/14) Acne (09/14/14) Migraine with aura and without status migrainosus Migraine Family History Mother Migraine Essential hypertension Father Rheumatoid arthritis Thyroid disease Asthma outgrown Blood clot in vein age 50 Grandfather Diabetes Essential hypertension Grandfather Asthma Grandmother Diabetes Essential hypertension Grandmother Diabetes Heart disease PATERNAL FAMILY HISTORY Personal history of malignant neoplasm PROSTATE/LUNG Social History Smoking/Tobacco Use Status: Never Second Hand Exposure: No Smoking risk assessment performed?: Yes Alcohol Intake: never Drug use: Never Substance use type: does not use Adopted: No Caregiver/Support person: No Foster care: No Household members: significant other and other Details: Sylvia (RT) 30yo x4yr. 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 [employer] Pets and animals: Yes Pets and animals: cat(s) and dog(s) Sexually active: Yes Do you think of yourself as: straight/heterosexual Current gender identity: female What is your relationship status?: living with partner How often do you talk on the phone with friends or family?: three or more times per week How often do you get together with friends or relatives?: three or more times per week Do you belong to any clubs or organized social groups?: no Panel score (0-1 are the most socially isolated patients): 2 What type of physical activity do you participate in: none Lupe/Restoration: None Special lupe needs: No Seatbelt use: always Helmet use: No Drive intox or ride w/intox limousine driver: No History History 1 Para 0 Hx # Term Pregnancies 0 Multiple births 0 Hx # Pregnancies 0 Ectopic pregnancies 0 AB induced 0 Hx Number of Living Children 0 AB spontaneous 0 Meds Allergies and Home Medications Allergies Allergy/AdvReac Type Severity Reaction Status Date / Time infliximab (From Remicade) Allergy rash Verified 03/12/25 15:56 Home Medications ?Medication ?Instructions ?Recorded ?Confirmed ?Type sumatriptan succinate 25 mg tablet 100 mg PO ONCE PRN 11/20/21 03/12/25 History Held on 11/20/24. Instructions: Changed by Provider albuterol sulfate 90 mcg/actuation 2 inh inhalation Q4 H PRN shortness 10/16/23 03/12/25 Rx aerosol inhaler of breath or wheezing #8.5 g stephane ascorbic acid (vitamin C) 1,000 mg 1 g PO DAILY 03/12/25 History tablet certolizumab pegol 200 mg/mL 200 mg subcut Q2W 5 03/12/25 History subcutaneous syringe kit (Cimzia) vits no.126-ferrous fum tab PO 09/04/2403/12 History 28 mg iron-folic acid 800 mcg tablet (Classic ) Exam Physical Exam Vital signs: Pulse BP 74 168/95 H 03/12/25 16:45 03/12/25 16:45 Narrative: General: Well-nourished female in no immediate distress Pulmonary: No overt respiratory distress; CTAB Cardiology: Regular rate and rhythm; no overtly concerning murmurs or arrythmias Abdomen: Gravid, nontender, no right upper quadrant tenderness Extremity: Trace edema noted equally bilaterally. Patellar DTR's 3+/4 FHT: 130, moderate variability, positive accels, no decels; overall reassuring [place]: None Detailed Labor and Delivery Exam Hoffman Score: Cervical Points Exam 0 1 2 3 Dilation Closed 1-2cm 3-4 cm 5-6cm Effacement 0-30% 40-50% 60-70% 80% Consistency Firm Medium Soft Station -3 -2 -1,0 +1,+2 Position Posterior Mid Anterior Results Results Lab Results: Blood type A-, antibody screen negative, 28-week 1 hour OGTT 100, varicella immune, rubella immune, syphilis nonreactive, hepatitis B antigen negative, hepatitis C antibody negative, HIV screening negative, gonorrhea chlamydia screening negative, cystic fibrosis negative carrier, SMA negative carrier, genetic screening quiroga negative (baby boy) Abnormal Lab Findings: Abnormal Labs 03/12/25 16:48 WBC 12.95 H RBC 3.39 L Hgb 11.0 L Hct 32.0 L MPV 12.1 H Labs are remarkable for a modest elevation in uric acid (6.2) and a protein:creatinine of 1.24. Creatinine 0.7, platelets 182 (downtrending over the course of her 243 on 10/26, 209 on 02/12, 182 on 03/12) Ultrasound OB Ultrasound done for other reason. (A complete transabdominal ultrasound was performed for a biophysical profile. Cephalic presentation. Placenta is noted to be on the right side. Biophysical profile is 8 out of 8 in the first 15 minutes. MARLENA is consistent with what was found earlier this afternoon.). Risk Assessment Risk for Shoulder Dystocia Historical/Initial OB: NEGATIVE FOR: Pelvic Abnormality, Pre- BMI>30, Previous Shoulder Dystocia or Previous Macrosomia Risk for Pre-Eclampsia Yes, if one or more: NEGATIVE FOR: Hx Pre-E/Gest HTN, Chronic HTN, Multiple Gestation, Pre-gestational DM, Renal Disease, Systemic Lupus or APA Syndrome Yes, if 2 or more: POSITIVE FOR: Nulliparity; NEGATIVE FOR: Age>= 35 yrs, >10yr btwn pregnancies, BMI>30, ethinicty, Mother/Sister w/ Pre-E or Previous IUGR Risk for Post- Hemorrhage Initial: NEGATIVE FOR: Multiple Gestation, Previous PPH, Known Clotting Deficiency, Grand Multiparity or Anticoagulation Risks Reviewed Risks Reviewed Upon Admission: Yes
[2025-03-12 17:16] LABS: ALT 21 U/L (14-59); AST 18 U/L (15-37); Albumin 2.8 g/dL (3.4-5.0); Alkaline Phosphatase 101 U/L (46-116); Anion Gap 7.7 mmol/L (3-11); BUN 14 mg/dL (7-18); Bilirubin, Total 0.3 mg/dL (0.2-1.0); CO2 25.3 mmol/L (21.0-32.0); Calcium 9.7 mg/dL (8.5-10.1); Chloride 104 mmol/L (98-107); Estimated GFR 122.25 (mL/min/1.73m2); Glucose 100 mg/dL (74-106); Potassium 3.9 mmol/L (3.5-5.1); Sodium 137 mmol/L (136-145); Total Protein 6.9 g/dL (6.4-8.2)
[2025-03-12] MEDS: NIFEdipine 10 MG CAP PO (17:22)
[2025-03-12 17:30] LABS: LDH 198 U/L (81-234); Uric Acid 6.2 mg/dL (2.6-6.0)
[2025-03-12] MEDS: Betamet Acet/Betamet Na Ph Inj. 30 MG/5 ML 12 MG IM (17:36)
[2025-03-12] MEDS: MAGNESIUM SULFATE 20 GM/500 ML BAG IV_INF (17:58)
--- NOTE | 2025-03-12 20:54 | PGE_ITS ---
Date of Service Date of service: 03/12/25 Time of Service: 20:54 Assessment and Plan Assessment and plan (1) : Status: Acute Assessment and plan: 24-year-old G1, P0 at 31 weeks and 6 days as dated by LMP equal to 36 weeks is dated by LMP equal to an 8-week ultrasound (GUERLINE 05/08/2025) ? Rh-/rubella immune/VZV immune/GBS pending ? complicated by type III Edwin-Danlos, psoriatic arthritis, and now suspected preeclampsia ? Administering betamethasone (first dose received 1736 on 03/12/2025) ? GBS pending as of 03/12/2025 ? Discussed triage process with patient. We discussed the potential need for transfer to [facility] [place] in the event that she has multiple episodes of severe range blood pressures. For now, we will continue to monitor here so long as her clini al status remains stable and her blood pressures remain out of severe range. - - - - - - - - - - - - - - - 03/12/2025@2100 (Olena): Spoke with Dr. Annie Bills of MFM at [facility] [place] regarding patient case. They are accepting the patient as a transfer for escalation of care to room 10. RN report to be called to [phone]. Spoke with the patient and her family regarding the transfer. They are consent to transfer. Patient to be transferred by Damian Sarmiento - - - - - - - - - - - - - - - (2) Pre-eclampsia: Status: Acute Assessment and plan: ? Diagnosis based on elevated blood pressures in the setting of an elevated protein creatinine ratio (1.24) ? 24-hour urine protein collection started at 6 pm ? BMZ initiated 03/12 at 1736 ? 10 mg Procardia IR x1 dose on 03/12 at 1722; not on current long-term therapy ? Magnesium initiated with 4 gram bolus on 03/12 at 1800 ? GBS swab collected 03/12 ? Magnesium therapy given the initially severe range blood pressures; discussed that magnesium therapy will be continued throughout the evening ? status stable and reassuring (3) Rh negative status during : Status: Acute Assessment and plan: ? Antibody screening initially negative ? Patient has received RhoGAM at the 28-week namrata ? Denies any current vaginal bleeding (4) EDS (Edwin-Danlos syndrome): Status: Acute Assessment and plan: ? Type III; hypermobile ? Patient reports formal diagnosis via genetic testing ? Patient denies any history of cardiovascular involvement (5) Rheumatoid arthritis: Status: Chronic Assessment and plan: ? Well-controlled on Certolizumab; patient reports next dose is due this weekend (injection performed every 2 weeks). Ordered to be continued for this weekend. (6) Oral allergy syndrome: Status: Acute Assessment and plan: - Allergies to strawberries and kiwis Objective Last Vital Signs Temp 97.8 F 03/12/25 19:55 Pulse 102 H 03/12/25 20:37 Resp 16 03/12/25 19:55 BP 142/88 H 03/12/25 20:37 Pulse Ox 97 03/12/25 18:15 Laboratory Results - last 24 hr 03/12/25 03/12/25 03/12/25 16:48 17:15 17:30 WBC 12.95 H RBC 3.39 L Hgb 11.0 L Hct 32.0 L MCV 94 MCH 32.4 MCHC 34.4 RDW 13.0 Plt Count 182 MPV 12.1 H Sodium 137 Potassium 3.9 Chloride 104 Carbon Dioxide 25.3 Anion Gap 7.7 BUN 14 Creatinine 0.7 Est GFR (CKD-EPI 2020) 122.25 Glucose 100 Uric Acid 6.2 H Calcium 9.7 Magnesium Cancelled Total Bilirubin 0.3 AST 18 ALT 21 Alkaline Phosphatase 101 Lactate Dehydrogenase 198 Total Protein 6.9 Albumin 2.8 L Ur Random Creatinine 21.96 U Random Total Protein 27.4 U [place] Prot/Creat Ratio 1.24 ABO/Rh A Negative Antibody Screen POSITIVE Antibody Identification See Comments Time Spent with Patient Time Spent with Patient: 25-34 minutes Time was spent: preparing to see the patient(eg.review tests), obtaining and/or reviewing separately otained hiistory, ordering medications,tests, procedures, r eferring, communicating with other health aged or disabled carer, indepentently interpreting results, counseling the patient and care coordination
== END 2025-03-12 22:10 | disposition short-term general hospital (02) ==
LOC: BCD 17:26 → OBS 17:26
PROVIDERS: Admitting Provider Obstetrics & Gynecology; PCP Nurse Practitioner; Visit Provider Advanced Practice Midwife
DX: O14.93 Unspecified pre-eclampsia, third trimester (principal); O26.893 Other specified pregnancy related conditions, third trimester; Z3A.31 31 weeks gestation of pregnancy; Q79.60 Ehlers-Danlos syndrome, unspecified; Q79.62 Hypermobile Ehlers-Danlos syndrome; M06.9 Rheumatoid arthritis, unspecified
CPT/HCPCS: 80053; 85027; 86850; 86900; 86901; 96365; 96366; 59025; 82565; 83615; 83735; 84156; 84550; 86870; 87081; G0378; J0702; J3475

== ENCOUNTER 2025-06-10 12:42 | Outpatient (CLI) | payer BC, SELFPAY ==
[2025-06-10 12:57] LABS: Abs Immature Grans 0.01 10^3/uL (0.0-0.06); HCT 37.8 % (36.0-46.0); HGB 12.6 g/dL (11.2-15.7); Immature Grans % 0.2 %; MCH 29.9 pg (27.0-33.0); MCHC 33.3 % (32.0-36.0); MCV 90 fL (80-95); MPV 10.7 fL (8.0-11.0); Platelet Count 330 10^3/uL (130-400); RBC 4.21 10^6/uL (3.93-5.22); RDW 11.9 % (11.7-14.6); RDW-SD 38.6 fL; WBC 6.35 10^3/uL (4.4-10.8)
[2025-06-10 14:57] LABS: ALT 40 U/L (10-49); AST 32 U/L (<34); Albumin 4.9 g/dL (3.4-5.0); Alkaline Phosphatase 69 U/L (46-116); Bilirubin, Direct 0.2 mg/dL (<=0.3); Bilirubin, Total 0.80 mg/dL (0.2-1.2); Total Protein 8.1 g/dL (5.7-8.2)
== END 2025-06-10 12:43 | disposition home or self-care (01) ==
LOC: LBO 12:42
PROVIDERS: PCP Nurse Practitioner; Visit Provider Internal Medicine
DX: M06.9 Rheumatoid arthritis, unspecified (principal); M19.90 Unspecified osteoarthritis, unspecified site; Z79.899 Other long term (current) drug therapy; L40.9 Psoriasis, unspecified; L40.50 Arthropathic psoriasis, unspecified; Z51.81 Encounter for therapeutic drug level monitoring; M13.80 Other specified arthritis, unspecified site; Q79.62 Hypermobile Ehlers-Danlos syndrome
CPT/HCPCS: 36415; 80076; 82565; 85025